=== PATIENT | male | born 1980 | race Caucasian/White ===

== ENCOUNTER → 2018-05-29 | Outpatient (CLI) | payer OTHER ==
[~2018-05-29] MED LIST: ALBU90OI INH; AMLO5 PO; HEARTBURN RELI150 MG PO; HTN MEDICATION; IBUP800 PO; LISI20 PO; LISI5 PO; MELO7.5; NYST100000 PO; Norco 5-325 Ta1 EACH PO; PANT40 PO; Percocet 5-3251 EACH PO; Prilosec Otc20 MG PO; Ranitidine HCl300 M1 PO; TYLENOL325 MG PO; Vibramycin100 MG PO; Zofran Odt4 MG SL; [UNRECOGNIZED DRUG - OTHER]; [UNRECOGNIZED DRUG - REMARK]
== END | disposition home or self-care (01) ==
LOC: LAB SHORT 15:01 → LAB 15:01
PROVIDERS: Internal Medicine Gastroenterology
DX: R19.7 Diarrhea, unspecified (principal)
CPT/HCPCS: 82710

== ENCOUNTER → 2021-04-08 | Outpatient (CLI) | payer BC ==
[2021-04-10 02:11] LABS: CHLAMYDIA TRACHOMATIS, NAA Negative (Negative)
== END ==
LOC: LAB SHORT 17:45 → LAB 17:45
PROVIDERS: Physician Assistant
DX: R30.0 Dysuria (principal); N34.1 Nonspecific urethritis; Z88.0 Allergy status to penicillin
CPT/HCPCS: 87086

== ENCOUNTER → 2021-09-26 | Outpatient (CLI) | payer BC | END | disposition home or self-care (01) | LOC: LAB SHORT 16:45 → LAB 16:45 | DX: R31.29 Other microscopic hematuria (principal) | CPT/HCPCS: 87086 ==